=== PATIENT | female | born 1965 | race Caucasian/White ===

== ENCOUNTER 2021-05-14 04:23 | Day surgery (SDC) | payer OTHER ==
[2021-05-08 14:14] VITALS: BMI 35.5
[2021-05-14] MEDS ORDERED: MIDAZOLAM HCL 2 MG/2 ML SINGLE DOSE VIAL ONE (07:26)
[2021-05-14] MEDS ORDERED: oxyCODONE HCL 5 MG TABLET PO PRN (07:48)
[2021-05-14] MEDS ORDERED: IBUPROFEN 600 MG TABLET (FP) PO PRN (07:48)
[2021-05-14] MEDS ORDERED: IBUPROFEN 800 MG/8 ML IJ IVPB PRN (07:48)
[2021-05-14] MEDS ORDERED: ONDANSETRON 4 MG/2 ML VIAL IVPUSH PRN (07:48)
[2021-05-14] MEDS ORDERED: ELECTROLYTE-148 SOLN 1,000 ML IV SCH (08:00)
[2021-05-14] MEDS ORDERED: DESFLURANE GAS 240 ML BOTTLE IH ONE ×2 (08:09→08:11)
[2021-05-14] MEDS ORDERED: LIDOCAINE HCL 2% JELLY (5 ML/TUBE) ONE (08:11)
[2021-05-14] MEDS ORDERED: DEXAMETHASONE SOD PHOSPHATE 4 MG/1 ML VIAL ONE (08:11)
[2021-05-14] MEDS ORDERED: ONDANSETRON 4 MG/2 ML VIAL ONE (08:11)
[2021-05-14] MEDS ORDERED: LIDOCAINE HCL/PF 2% SDV 5ML VIAL ONE (08:11)
[2021-05-14] MEDS ORDERED: KETOROLAC TROMETHAMINE 30 MG/1 ML VIAL ONE (08:11)
[2021-05-14] MEDS ORDERED: PROPOFOL 20 ML ONE ×3 (08:28)
[2021-05-14] MEDS ORDERED: LACTATED RINGERS SOLUTION 1,000 ML IV SCH (08:30)
[2021-05-14 10:45] VITALS: PULSE 75
[2021-05-14 13:31] VITALS: BP 113/71; TEMP 98
== END 2021-05-14 12:55 | disposition home or self-care (01) ==
LOC: JASU-SURG 04:23
PROVIDERS: ATTEND Obstetrics & Gynecology
PROC: 0UB98ZZ Excision of Uterus, Via Natural or Artificial Opening Endoscopic (ICD-10-PCS; principal; 2021-05-14 07:30)
PROC: 0UB98ZX Excision of Uterus, Via Natural or Artificial Opening Endoscopic, Diagnostic (ICD-10-PCS; 2021-05-14 07:30)
PROC: 0UDB8ZX Extraction of Endometrium, Via Natural or Artificial Opening Endoscopic, Diagnostic (ICD-10-PCS; 2021-05-14 07:30)
DX: D25.0 Submucous leiomyoma of uterus (principal); N84.0 Polyp of corpus uteri; N92.4 Excessive bleeding in the premenopausal period; R93.89 Abnormal findings on diagnostic imaging of other specified body structures
CPT/HCPCS: 94760